=== PATIENT | male | born 1945 | race Hispanic/Latino ===

== ENCOUNTER 2017-06-04 17:34 | Inpatient (IN) | payer MEDICARE, BC ==
[2017-06-04 17:44] VITALS: BMI 37.3
[2017-06-04] MEDS ORDERED: Sodium Chloride 0.9% 500 ML IV STA (18:46)
[2017-06-04 19:21] LABS: EOS # 0.1 (0.0-0.7); EOS % 0.7 % (1.5-5.0); GRAN # 7.3 (1.4-6.5); GRAN % 72.2 % (50.0-68.0); HEMATOCRIT 41.7 % (42.0-52.0); LYMPH # 1.7 (1.2-3.4); LYMPH % 16.9 % (22.0-35.0); MEAN CELL VOLUME 88.9 fl (80.0-105.0); MEAN CORPUSCULAR HEMOGLOBIN 30.5 pg (25.0-35.0); MEAN CORPUSCULAR HGB CONC 34.3 g/dl (31.0-37.0); MEAN PLATELET VOLUME 10.9 fl (7.0-11.0); MONO % 10.2 % (1.0-6.0); RED CELL DISTRIBUTION WIDTH 13.6 % (11.5-14.5); WHITE BLOOD COUNT 10.1 10^3/ul (4.5-11.0)
[2017-06-04 19:29] LABS: ALB/GLOB RATIO 1.3 (1.1-1.8); ALKALINE PHOSPHATASE 89 U/L (38-126); ALT/SGPT 31 U/L (7-56); AST/SGOT 25 U/L (17-59); BILIRUBIN,TOTAL 1.2 mg/dL (0.2-1.3); BLOOD UREA NITROGEN 12 mg/dL (7-21); CALCIUM 8.9 mg/dL (8.4-10.5); CARBON DIOXIDE 33 mmol/L (21-33); CHLORIDE 94 mmol/L (98-107); GFR AFRICAN-AMERICAN > 60; GLUCOSE,RANDOM 114 mg/dL (70-110); LIPASE 42 U/L (23-300); POTASSIUM 4.2 mmol/L (3.6-5.0); SODIUM 136 mmol/L (132-148); TOTAL PROTEIN 7.2 g/dL (5.8-8.3)
[2017-06-04 19:36] LABS: INR 1.03 (0.93-1.08); PARTIAL THROMBOPLASTIN TIME 28.3 Seconds (23.7-30.8)
--- NOTE | 2017-06-04 19:39 | ED PDOC ---
Arrival/HPI - General Historian: Patient - History of Present Illness Time/Duration: Other (today) Symptom Course: Unchanged Quality: Other Context: Home - General Chief Complaint: GI Problem Time Seen by Provider: 06/04/17 18:16 - History of Present Illness Narrative History of Present Illness (Text): 06/04/17 19:39 A 72 year old male, whose past surgical history includes 2 bilateral inguinal hernia repair, was sent into the emergency department by PMD for hernia in right groin. Patient reports he has had a bulge present for the past few months but no pain until recently. Patient also reports constipation for the past 5 days but states he is able to pass gas. Patient notes lower abdominal pain, nausea, non-bilious non-bloody vomiting, difficulty tolerating PO and a loss of appetite. Patient was seen by PMD today and had an outpatient CT done which showed a hernia in right groin. Patient denies any fever, chills, urinary symptoms, chest pain, shortness of breath or any other complaints. PMD Oneyda Honeycutt (Rosanna Bentley PA-C) Past Medical History - Provider Review Nursing Documentation Reviewed: Yes - Infectious Disease Hx of Infectious Diseases: None - Reproductive Currently : No - Gastrointestinal Other/Comment: hernia - Psychiatric Hx Substance Use: No - Anesthesia Hx Anesthesia: Yes Hx Anesthesia Reactions: No Hx Malignant Hyperthermia: No Family/Social History - Physician Review Nursing Documentation Reviewed: Yes Family/Social History: No Known Family HX Smoking Status: Never Smoked Hx Alcohol Use: No Hx Substance Use: No Allergies/Home Meds Allergies/Adverse Reactions: Allergies No Known Allergies Allergy (Verified 06/04/17 17:44) Home Medications: Home Meds Medication Instructions Recorded Confirmed Ciprofloxacin [Cipro] 1 tab PO BID 06/04/17 06/04/17 Metronidazole [Flagyl] 1 tab PO TID 06/04/17 06/04/17 Review of Systems - Physician Review All systems were reviewed & negative as marked: Yes - Review of Systems Constitutional: absent: Fevers, Night Sweats Respiratory: absent: SOB Cardiovascular: absent: Chest Pain Gastrointestinal: Abdominal Pain, Constipation, Nausea, Vomiting, Appetite Changes Genitourinary Male: Other (hernia in right groin). absent: Dysuria, Frequency, Hematuria, Urinary Output Changes Physical Exam Vital Signs Reviewed: Yes Temperature: Afebrile Blood Pressure: Normal Pulse: Tachycardic Respiratory Rate: Normal Appearance: Positive for: Well-Appearing, Non-Toxic, Comfortable Pain Distress: None Mental Status: Positive for: Alert and Oriented X 3 - Systems Exam Head: Present: Atraumatic, Normocephalic Pupils: Present: PERRL Extroacular Muscles: Present: EOMI Conjunctiva: Present: Normal Mouth: Present: Moist Mucous Membranes Neck: Present: Normal Range of Motion Respiratory/Chest: Present: Clear to Auscultation, Good Air Exchange. No: Respiratory Distress, Accessory Muscle Use Cardiovascular: Present: Regular Rate and Rhythm, Normal S1, S2. No: Murmurs Abdomen: Present: Tenderness, Normal Bowel Sounds, Hernias (Palpable mass to inguinal area). No: Distention, Peritoneal Signs Rectal: Present: Normal Rectal Tone, Other (no impaction, male EMT was present during the entire exam). No: Occult Blood (guaiac negative), Rectal Tenderness , Gross Blood, Melena, Hemorrhoids, Fissures, Nodule/Mass/Lesions Back: Present: Normal Inspection Upper Extremity: Present: Normal Inspection. No: Cyanosis, Edema Lower Extremity: Present: Normal Inspection. No: Edema Neurological: Present: GCS=15, CN II-XII Intact, Speech Normal Skin: Present: Warm, Dry, Normal Color. No: Rashes Psychiatric: Present: Alert, Oriented x 3, Normal Insight, Normal Concentration Vital Signs Temp Pulse Resp BP Pulse Ox 06/04/17 22:16 91 H 18 118/74 98 06/04/17 20:30 84 16 121/74 96 06/04/17 17:45 98.8 F 91 H 18 145/86 95 Medical Decision Making - Lab Interpretations I have reviewed the lab results: Yes ED Course and Treatment: I was available for consultation during PA evaluation. The chart was reviewed by me, and I agree with disposition. The documented history was done by the physician director of quality control. The documented physical exam was done by the physician director of quality control. The documented procedures were done by the physician director of quality control. (Talib Pereira) 06/04/17 19:39 Impression: A 72 year old male with a hernia in right groin. Patient notes constipation, lower abdominal pain, nausea, vomiting, difficulty tolerating PO and loss of appetite. Plan: -- Labs -- Urinalysis -- Lactulose, Zofran and IV fluids -- Reassess and disposition Progress Notes: CT A/P results reviewed. Case d/w Dr. Kranthi Honeycutt, notified and agrees with plan for admission and to consult Dr. Benavdiez for surgery. Bridge orders placed. Patient notified of plan for admission and he agrees with plan. vice president quality made aware and case discussed. (Mc CARO,Rosanna Gomez) - Lab Interpretations Lab Results: 06/04/17 19:16 06/04/17 19:16 Lab Results 06/04/17 19:16: Blood Type A POSITIVE, Antibody Screen Negative, BBK History Checked No verified bt 06/04/17 19:16: Sodium 136, Potassium 4.2, Chloride 94 L, Carbon Dioxide 33, Anion Gap 13, BUN 12, Creatinine 1.0, Est GFR ( Amer) > 60, Est GFR (Non- Af Amer) > 60, Random Glucose 114 H, Calcium 8.9, Total Bilirubin 1.2, AST 25, ALT 31, Alkaline Phosphatase 89, Total Protein 7.2, Albumin 4.0, Globulin 3.2, Albumin/Globulin Ratio 1.3, Lipase 42 06/04/17 19:16: PT 11.1, INR 1.03, APTT 28.3 06/04/17 19:16: WBC 10.1, RBC 4.69, Hgb 14.3, Hct 41.7 L, MCV 88.9, MCH 30.5, MCHC 34.3, RDW 13.6, Plt Count 203, MPV 10.9, Gran % 72.2 H, Lymph % (Auto) 16.9 L, [place] % (Auto) 10.2 H, Eos % (Auto) 0.7 L, Baso % (Auto) 0.0, Gran # 7.30 H, Lymph # 1.7, [place] # 1.0 H, Eos # 0.1, Baso # 0.00 - RAD Interpretation Narrative RAD Interpretations (Text): 06/04/17 19:45 CT A/P : FINDINGS: LOWER THORAX: Unremarkable. LIVER: Unremarkable. No gross lesion or ductal dilatation. GALLBLADDER AND BILE DUCTS: Unremarkable. PANCREAS: Unremarkable. No gross lesion or ductal dilatation. SPLEEN: Unremarkable. ADRENALS: Unremarkable. No mass. KIDNEYS AND URETERS: Unremarkable. No hydronephrosis. No solid mass. VASCULATURE: Unremarkable. No aortic aneurysm. BOWEL: There is a right inguinal hernia which contains a loop of small bowel. The hernia sac measures 6 cm in diameter. The hernia defect measures 4.5 cm as seen on coronal image 45. This appears to produce partial obstruction with dilatation of the proximal small bowel up to a diameter of 4 cm. APPENDIX: Unremarkable. Normal appendix. PERITONEUM: Unremarkable. No free fluid. No free air. LYMPH NODES: Unremarkable. No enlarged lymph nodes. BLADDER: Unremarkable. REPRODUCTIVE: Unremarkable. BONES: No acute fracture. OTHER FINDINGS: I spoke to Dr. Adonis Honeycutt regarding these findings at 2:30 p.m. IMPRESSION: Right inguinal hernia containing a loop of small bowel with partial small bowel obstruction. (Mc CARO,Rosanna Gomez) - Medication Orders Current Medication Orders: Sodium Chloride (Sodium Chloride 0.9%) 1,000 mls @ 100 mls/hr IV .Q10H STA Stop: 06/05/17 05:45 Last Admin: 06/04/17 20:15 Dose: 100 mls/hr Discontinued Medications Sodium Chloride (Sodium Chloride 0.9%) 500 mls @ 1,000 mls/hr IV .Q30M STA Stop: 06/04/17 19:15 Last Admin: 06/04/17 19:29 Dose: 1,000 mls/hr Lactulose (Enulose) 20 gm PO ONCE STA Stop: 06/04/17 18:49 Last Admin: 06/04/17 19:29 Dose: 20 gm Ondansetron HCl (Zofran Inj) 4 mg IVP STAT STA Stop: 06/04/17 18:47 Last Admin: 06/04/17 19:29 Dose: 4 mg - PA / HOT TAR ROOFER / Resident Statement MD/DO has reviewed & agrees with the documentation as recorded. - Scribe Statement The provider has reviewed the documentation as recorded by the Scribe - Scribe Statement Margy Corea Provider Scribe Attestation: All medical record entries made by the Scribe were at my direction and personally dictated by me. I have reviewed the chart and agree that the record accurately reflects my personal performance of the history, physical exam, medical decision making, and the department course for this patient. I have also personally directed, reviewed, and agree with the discharge instructions and disposition. (Mc CARO,Rosanna Gomez) Disposition/Present on Arrival - Present on Arrival Any Indicators Present on Arrival: No History of DVT/PE: No History of Uncontrolled Diabetes: No Urinary Catheter: No History of Decub. Ulcer: No History Surgical Site Infection Following: None - Disposition Have Diagnosis and Disposition been Completed?: Yes Disposition Time: 07:30 Patient Plan: Admission - Disposition Diagnosis: Abdominal pain, Partial small bowel obstruction, Right inguinal hernia Disposition: HOSPITALIZED Patient Problems: Current Active Problems Problem Status Onset Abdominal pain Acute Partial small bowel obstruction Acute Right inguinal hernia Acute Condition: STABLE
[2017-06-04] MEDS ORDERED: Sodium Chloride 0.9% 1,000 ML IV STA (19:46)
[2017-06-04 19:47] LABS: URINE APPEARANCE CLEAR (CLEAR); URINE BILIRUBIN NEGATIVE (NEGATIVE); URINE BLOOD NEGATIVE (NEGATIVE); URINE COLOR LIGHT YELLOW (YELLOW); URINE GLUCOSE (UA) NEGATIVE (NEGATIVE); URINE KETONE TRACE mg/dL (NEGATIVE); URINE LEUKOCYTE ESTERASE NEGATIVE Leu/uL (NEGATIVE); URINE PROTEIN NEGATIVE mg/dL (<30 mg/dL); URINE UROBILINOGEN 0.2 E.U./dL (<1 E.U./dL)
--- NOTE | 2017-06-04 23:01 | CP.PCM.CON ---
History of Present Illness - History of Present Illness History of Present Illness: General Surgery Consult Re: R inguinal hernia, partial SBO HPI: 72M sent to ED by PMD for R inguinal hernia found on outpatient CT. Pt reports hernia has been present for almost a year but had no pain until recently. Hernia is easily reducible. Pain is mostly at hernia site on R when it has popped out but has mild LLQ pain as well. Also reports constipation x 5 days with some occasional flatus. + nausea, NBNB emesis, difficulty tolerating PO and decreased appetite. Denies any fever, chills, urinary symptoms, chest pain, shortness of breath or any other complaints. Pt was afraid his hernia could "burst." PMH: Denies PSH: R and L inguinal hernia repairs SH: [place]. No tobacco, EtOH, or Drug use All: NKDA Meds: Denies Review of Systems - Review of Systems All systems: reviewed and no additional remarkable complaints except (as per HPI ) Past Patient History - Infectious Disease Hx of Infectious Diseases: None - Past Social History Smoking Status: Never Smoked - GASTROINTESTINAL Other/Comment: hernia - PSYCHIATRIC Hx Substance Use: No - SURGICAL HISTORY Hx Herniorrhaphy: Yes - ANESTHESIA Hx Anesthesia: Yes Hx Anesthesia Reactions: No Hx Malignant Hyperthermia: No Meds Allergies/Adverse Reactions: Allergies Allergy/AdvReac Type Severity Reaction Status Date / Time No Known Allergies Allergy Verified 06/04/17 17:44 - Medications Medications: Current Medications Sodium Chloride (Sodium Chloride 0.9%) 1,000 mls @ 100 mls/hr IV .Q10H STA Stop: 06/05/17 05:45 Last Admin: 06/04/17 20:15 Dose: 100 mls/hr Physical Exam - Constitutional Appears: Non-toxic, No Acute Distress - Head Exam Head Exam: ATRAUMATIC, NORMOCEPHALIC - Eye Exam Eye Exam: EOMI. absent: Scleral icterus - ENT Exam ENT Exam: Mucous Membranes Dry Additional comments: trachea midline - Respiratory Exam Respiratory Exam: NORMAL BREATHING PATTERN. absent: Respiratory Distress - Cardiovascular Exam Cardiovascular Exam: RRR. absent: JVD - GI/Abdominal Exam GI & Abdominal Exam: Hernia (R), Soft, Tenderness (mild over R inguinal hernia) . absent: Distended, Firm, Guarding, Rigid Additional comments: Old open hernia repair scars B/L - Rectal Exam Rectal Exam: Deferred - Extremities Exam Extremities exam: Positive for: pedal edema (trace). Negative for: calf tenderness - Back Exam Back exam: absent: CVA tenderness (L), CVA tenderness (R) - Neurological Exam Neurological exam: Alert, Oriented x3 - Psychiatric Exam Psychiatric exam: Normal Affect, Normal Mood - Skin Skin Exam: Dry, Warm Results - Vital Signs Recent Vital Signs: Last Vital Signs Temp 98.8 F 06/04/17 17:45 Pulse 91 H 06/04/17 22:16 Resp 18 06/04/17 22:16 BP 118/74 06/04/17 22:16 Pulse Ox 98 06/04/17 22:16 - Labs Result Diagrams: 06/04/17 19:16 06/04/17 19:16 Labs: Laboratory Results - last 24 hr 06/04/17 06/04/17 19:35 19:50 Urine Color Light yellow Urine Appearance Clear Urine pH 7.0 Ur Specific [place] <= 1.005 Urine Protein Negative Urine Glucose (UA) Negative Urine Ketones Trace H Urine Blood Negative Urine Nitrate Negative Urine Bilirubin Negative Urine Urobilinogen 0.2 Ur Leukocyte Esterase Negative Blood Type Confirm A POSITIVE Assessment & Plan - Assessment and Plan (Free Text) Assessment: 72M with recurrent R inguinal hernia. Plan: Possible OR Sunday NPO p MN IVF Analgesia PRN Monitor for bowel movements D/W Dr. Pramod Lee PGY4
--- NOTE | 2017-06-05 09:43 | CP.PCM.PN ---
Subjective - Date & Time of Evaluation Date of Evaluation: 06/05/17 Time of Evaluation: 09:40 - Subjective Subjective: General Surgery Progress note for Dr. Benavidez PT S&E at bedside. PURA. Patient was informed that it would be better to schedule the hernia electively. Patient denies F/C, constipation, abdominal pain , N/V Objective - Vital Signs/Intake and Output Vital Signs (last 24 hours): Temp Pulse Resp BP Pulse Ox 99.3 F 88 20 122/63 100 06/05/17 08:17 06/05/17 08:17 06/05/17 08:17 06/05/17 08:17 06/05/17 08:17 Intake and Output: 06/05/17 06/05/17 06:59 18:59 Intake Total 800 Balance 800 - Medications Medications: Current Medications Sodium Chloride (Sodium Chloride 0.9%) 1,000 mls @ 100 mls/hr IV .Q10H PERI Pantoprazole Sodium (Protonix Inj) 40 mg IVP DAILY PERI - Labs Labs: PT 11.1 Seconds (9.9-11.8) 06/04/17 19:16 INR 1.03 (0.93-1.08) 06/04/17 19:16 APTT 28.3 Seconds (23.7-30.8) 06/04/17 19:16 - Constitutional Appears: Non-toxic, No Acute Distress - Head Exam Head Exam: NORMAL INSPECTION - Eye Exam Eye Exam: EOMI, Normal appearance - ENT Exam ENT Exam: Mucous Membranes Moist - Neck Exam Neck Exam: Full ROM - Respiratory Exam Respiratory Exam: NORMAL BREATHING PATTERN. absent: Accessory Muscle Use, Respiratory Distress - Cardiovascular Exam Cardiovascular Exam: REGULAR RHYTHM. absent: Bradycardia, Tachycardia - GI/Abdominal Exam GI & Abdominal Exam: Soft, Normal Bowel Sounds. absent: Tenderness Additional comments: scars from previous hernia repairs (at age 19 and one in his 30s) current hernia is reducible - Extremities Exam Extremities Exam: Full ROM, Normal Inspection. absent: Pedal Edema - Neurological Exam Neurological Exam: Alert, Awake, Oriented x3 - Psychiatric Exam Psychiatric exam: Normal Affect, Normal Mood - Skin Skin Exam: Dry, Intact, Normal Color, Warm Assessment and Plan - Assessment and Plan (Free Text) Assessment: 72M with recurrent R inguinal hernia. Plan: recommend scheduling the hernia repair as outpatient c/w current medical management c/w current pain control monitor for BM IVF d/w Dr. Pramod Bower, DO PGY1
[2017-06-05] MEDS: Sodium Chloride 0.9% 1,000 ML IV SCH ×2 (09:53→20:53)
--- NOTE | 2017-06-05 20:05 | HP ---
HISTORY OF PRESENT ILLNESS: The patient is a 72-year-old man with a past medical history of bilateral inguinal hernias s/p surgical repair who presented to [facility] ED for evaluation of a several day history of lower abdominal pain, worse in the RLQ and associated with nausea and constipation. He was evaluated in his PMD's office for the aforementioned symptoms and physical examination disclosed a mildly distended abdomen with rather significant RLQ tenderness with guarding as well as a small reducible inguinal hernia. The patient was provided with a prescription for a CT of the abdomen and pelvis which was obtained at [facility]. The imaging studies demonstrated a right inguinal hernia containing a loop of small bowel with partial small bowel obstruction. Given his significant pain and findings on the CAT scan, the patient was advised to present to the emergency department for further evaluation. Initially, the patient had refused but over the next few hours his pain had increased in intensity and as such he returned to the ED for further management. He was subsequently admitted to the [facility] for surgical evaluation. PAST MEDICAL HISTORY: As per HPI. PAST SURGICAL HISTORY: As per HPI. ALLERGIES: NKDA. MEDICATIONS: None. FAMILY HISTORY: Noncontributory. SOCIAL HISTORY: The patient denies any history of smoking, alcohol use or illicit drug abuse. REVIEW OF SYSTEMS: A 14-point review of systems is negative except as per HPI. PHYSICAL EXAMINATION: VITAL SIGNS: Temperature 99.3, pulse 88, blood pressure 122/63, respiratory rate 20, oxygen saturation 100% on room air. GENERAL: No apparent distress. HEENT: PERRL. EOMI. No scleral icterus. No conjunctival pallor. NECK: No JVD. No bruits. LUNGS: Clear to auscultation. CARDIOVASCULAR: Regular rate and rhythm. Normal S1 and S2. ABDOMEN: Normal active bowel sounds. Soft, tender to palpation to the RLQ with voluntary guarding with reducible right inguinal hernia. EXTREMITIES: No edema. NEUROLOGIC: Awake, alert and oriented x3. No focal motor deficits. LABORATORY DATA: CBC reviewed and unremarkable. CMP reviewed and unremarkable. IMAGING STUDIES: CT of the abdomen and pelvis without contrast demonstrates a right inguinal hernia containing loop of small bowel with partial small bowel obstruction. ASSESSMENT: The patient is a 72-year-old man with past medical history of bilateral inguinal hernias s/p surgical repair who presented to [facility] for continued management of a one-week history of lower abdominal pain with outpatient CT of the abdomen and pelvis demonstrating a right-sided inguinal hernia with small bowel obstruction. PLAN: 1. Right-sided inguinal hernia. Dr. Benavidez of general surgery has been consulted for evaluation for possible surgical repair. The patient remains n.p.o. and at present his pain is controlled with no analgesics. We will continue to monitor for fever and leukocytosis. Continue with serial abdominal exams. 2. Prophylaxis. We will start Protonix 40 mg IV daily for GI prophylaxis. We will hold the DVT prophylaxis as the patient may require surgical repair. CODE STATUS: FULL CODE. Adonis Honeycutt MD MTDD
[2017-06-06] MEDS: Sodium Chloride 0.9% 1,000 ML IV SCH ×2 (05:51→21:27)
[2017-06-06 06:17] LABS: BASO # 0.01 K/mm3 (0.0-2.0); BASO % 0.2 % (0.0-3.0); EOS # 0.3 (0.0-0.7); EOS % 5.7 % (1.5-5.0); GRAN # 3.18 (1.4-6.5); GRAN % 56.4 % (50.0-68.0); HEMATOCRIT 35.5 % (42.0-52.0); LYMPH # 1.6 (1.2-3.4); LYMPH % 28.8 % (22.0-35.0); MEAN CELL VOLUME 90.1 fl (80.0-105.0); MEAN CORPUSCULAR HEMOGLOBIN 30.5 pg (25.0-35.0); MEAN CORPUSCULAR HGB CONC 33.8 g/dl (31.0-37.0); MEAN PLATELET VOLUME 10.8 fl (7.0-11.0); MONO # 0.5 (0.1-0.6); MONO % 8.9 % (1.0-6.0); RED CELL DISTRIBUTION WIDTH 13.9 % (11.5-14.5); WHITE BLOOD COUNT 5.6 10^3/ul (4.5-11.0)
[2017-06-06 07:10] LABS: ALB/GLOB RATIO 1.1 (1.1-1.8); ALKALINE PHOSPHATASE 65 U/L (38-126); ALT/SGPT 30 U/L (7-56); AST/SGOT 23 U/L (17-59); BILIRUBIN,TOTAL 0.6 mg/dL (0.2-1.3); BLOOD UREA NITROGEN 6 mg/dL (7-21); CALCIUM 7.9 mg/dL (8.4-10.5); CARBON DIOXIDE 28 mmol/L (21-33); CHLORIDE 108 mmol/L (95-110); GFR AFRICAN-AMERICAN > 60; GLUCOSE,RANDOM 85 mg/dL (70-110); POTASSIUM 3.6 mmol/L (3.6-5.0); SODIUM 142 mmol/L (132-148); TOTAL PROTEIN 5.8 g/dL (5.8-8.3)
--- NOTE | 2017-06-06 09:04 | RAD ---
HISTORY: preop COMPARISON: No prior. FINDINGS: LUNGS: No active pulmonary disease. PLEURA: No significant pleural effusion identified, no pneumothorax apparent. CARDIOVASCULAR: Normal. OSSEOUS STRUCTURES: No significant abnormalities. VISUALIZED UPPER ABDOMEN: Normal. OTHER FINDINGS: None. IMPRESSION: No active disease.
--- NOTE | 2017-06-06 10:16 | PN ---
DATE: SUBJECTIVE: The patient is seen and examined at bedside on the general medical [facility]. No acute events overnight. He remains afebrile and hemodynamically stable. He continues to endorse lower abdominal pain worse in the right lower quadrant, but states that it is bearable. He is pending surgical repair of his right inguinal hernia with small bowel obstruction. OBJECTIVE: VITAL SIGNS: Temperature of 98, pulse of 80, blood pressure of 128/76, respiratory rate of 18, and oxygen saturation of 95% on room air. GENERAL: No apparent distress. HEENT: PERRL. EOMI. No scleral icterus. No conjunctival pallor. NECK: No JVD. No bruits. LUNGS: Clear to auscultation. CARDIOVASCULAR: Regular rate and rhythm. Normal S1 and S2. ABDOMEN: Normoactive bowel sounds. Soft, tender to palpation to right upper quadrant with voluntary guarding with reducible right inguinal hernia. EXTREMITIES: No edema. NEUROLOGIC: Awake, alert, and oriented x3. No focal motor deficits. LABORATORY DATA: CBC reviewed and largely unremarkable. CMP reviewed and unremarkable. ASSESSMENT: The patient is a 72-year-old man with past medical history of bilateral inguinal hernias, status post surgical repair, who presented to [facility] for continued management of one week history of lower abdominal pain and who is subsequently admitted after an outpatient CT demonstrated right-sided inguinal hernia with small bowel obstruction. PLAN: 1. Right sided inguinal hernia with small bowel obstruction. Input from Dr. Benavidez and surgical team noted and appreciated and the patient is scheduled for operative repair later today. The patient has no underlying medical issues and no active cardiac issues and as such barring any abnormalities on his EKG. He may proceed to the OR without any further cardiac workup and is deemed a low risk candidate for intermediate risk procedure. 2. Prophylaxis: Continue Protonix 40 mg IV daily for GI prophylaxis. DVT prophylaxis on hold as the patient is pending, operative repair of his inguinal hernia. CODE STATUS: Full code. Adonis Honeycutt MD
[2017-06-06] MEDS ORDERED: Propofol 10 mg/ml Inj (20 ML) ONE (13:35)
[2017-06-06] MEDS ORDERED: Etomidate 20 mg/10ml Inj IV ONE (13:35)
[2017-06-06] MEDS ORDERED: Bupivacaine 0.5% Inj(30mL) ONE (13:42)
[2017-06-06] MEDS ORDERED: Lidocaine 2% Jelly (Uro-Jet) ONE (13:43)
[2017-06-06] MEDS ORDERED: Succinylcholine 200 mg/10 ml Inj IV ONE (14:43)
[2017-06-06] MEDS ORDERED: Glycopyrrolate 0.2 mg/ml (2ml vial) ONE (15:50)
[2017-06-06] MEDS ORDERED: Neostigmine Methylsulfate 3mg/3ml Syringe IV ONE ×2 (15:51→15:55)
[2017-06-06] MEDS ORDERED: Desflurane Inhalation Anesthetic Liq (240 ml) ONE (16:30)
[2017-06-06] MEDS ORDERED: HYDROmorphone 0.5 mg/0.5 ml ISec ONE (17:00)
--- NOTE | 2017-06-06 17:03 | CARD ---
APPROVED REPORT EKG Measurement Heart [id number] <Conclusion> Sinus rhythm with premature atrial complexes Otherwise normal ECG
[2017-06-06] MEDS ORDERED: HYDROmorphone 0.5 mg/0.5 ml ISec IVP PRN ×2 (17:33→17:37)
--- NOTE | 2017-06-06 17:33 | PCM.SURG1 ---
Surgeon's Initial Post Op Note - Surgeon's Notes Surgeon: Dr. Benavidez Operations Support Coordinator: Dr. Lee PGY-4, Dr. Wright PGY-2 Type of Anesthesia: General Endo Pre-Operative Diagnosis: right inguinal hernia Operative Findings: see operative report Post-Operative Diagnosis: see operative report Operation Performed: right inguinal hernia repair w/ mesh Specimen/Specimens Removed: cord lipoma Estimated Blood Loss: EBL {In ML}: 50 Blood Products Given: N/A Drains Used: No Drains Post-Op Condition: Good Date of Surgery/Procedure: 06/06/17 Time of Surgery/Procedure: 17:33
[2017-06-06] MEDS ORDERED: Lactated Ringer's 1,000 ML IV SCH (17:37)
[2017-06-07 06:25] LABS: GRAN # 9.84 (1.4-6.5); GRAN % 88.9 % (50.0-68.0); HEMATOCRIT 36.9 % (42.0-52.0); LYMPH # 0.7 (1.2-3.4); LYMPH % 6.3 % (22.0-35.0); MEAN CELL VOLUME 89.1 fl (80.0-105.0); MEAN CORPUSCULAR HEMOGLOBIN 29.7 pg (25.0-35.0); MEAN CORPUSCULAR HGB CONC 33.3 g/dl (31.0-37.0); MEAN PLATELET VOLUME 11.2 fl (7.0-11.0); MONO # 0.5 (0.1-0.6); MONO % 4.8 % (1.0-6.0); RED CELL DISTRIBUTION WIDTH 13.7 % (11.5-14.5); WHITE BLOOD COUNT 11.1 10^3/ul (4.5-11.0)
[2017-06-07 06:54] LABS: ALB/GLOB RATIO 1.1 (1.1-1.8); ALKALINE PHOSPHATASE 72 U/L (38-126); ALT/SGPT 29 U/L (7-56); AST/SGOT 24 U/L (17-59); BILIRUBIN,TOTAL 0.7 mg/dL (0.2-1.3); BLOOD UREA NITROGEN 8 mg/dL (7-21); CALCIUM 8.5 mg/dL (8.4-10.5); CARBON DIOXIDE 27 mmol/L (21-33); CHLORIDE 105 mmol/L (95-110); GFR AFRICAN-AMERICAN > 60; GLUCOSE,RANDOM 113 mg/dL (70-110); POTASSIUM 3.8 mmol/L (3.6-5.0); SODIUM 137 mmol/L (132-148); TOTAL PROTEIN 6.2 g/dL (5.8-8.3)
[2017-06-07 08:41] VITALS: BP 127/64; PULSE 79; RESP 20; TEMP 98.7; O2SAT 95
[2017-06-07] MEDS ORDERED: Enoxaparin 40 mg Syringe SC SCH (10:00)
--- NOTE | 2017-06-07 10:48 | PN ---
SUBJECTIVE: The patient was seen and examined at bedside on the general medical [facility]. No acute events overnight. He remains afebrile and hemodynamically stable. The patient is s/p operative repair of right inguinal hernia with placement of mesh. He tolerated the procedure well and his postoperative course thus far has been uncomplicated. This morning he feels significantly improved since admission, but does endorse mild pain at the surgical site. Otherwise, he offers no complaints. He has not yet had a bowel movement or passed flatus. OBJECTIVE: VITAL SIGNS: Temperature 98, pulse 143/76, respiratory rate 16, oxygen saturation 94% on room air. GENERAL: No apparent distress. HEENT: PERRL. EOMI. No scleral icterus. No conjunctival pallor. NECK: No JVD. No bruits. LUNGS: Clear to auscultation. CARDIOVASCULAR: Regular rate and rhythm. Normal S1 and S2. ABDOMEN: Normoactive bowel sounds, soft. Mild tenderness to palpation at the surgical site was voluntary guarding. Surgical site appears clean, dry and intact. EXTREMITIES: No edema. NEUROLOGIC: Awake, alert, and oriented x3. No focal motor deficits. LABORATORY DATA: WBC 11 with 89% neutrophils, hemoglobin 12, hematocrit 37, platelets 173. Chemistry revealed unremarkable. ASSESSMENT: The patient is a 72-year-old man with a past medical history of bilateral inguinal hernia s/p surgical repair who presents to [facility] for continued management of one week history of lower abdominal pain with an outpatient CT demonstrating a right sided inguinal hernia with small bowel obstruction who is now s/p operative repair of his right inguinal hernia POD #1. PLAN: 1. Right-sided inguinal hernia with small bowel obstruction, status post operative repair, postop day #1. Input from Dr. Benavidez and surgical team noted and appreciated and the patient is doing well postoperatively. We will defer advancing diet to the surgical team. 2. Leukocytosis. Etiology is likely secondary to stress response. The patient remains afebrile and otherwise hemodynamically stable. We will continue to monitor for fever and trend leukocytosis. 3. Prophylaxis. Continue Protonix 40 mg IV daily for GI prophylaxis and Lovenox 40 mg subcutaneous daily for DVT prophylaxis. CODE STATUS: FULL CODE. Adonis Honeycutt MD LUZ ELENA
[2017-06-07] MEDS ORDERED: Magnesium Hydroxide Susp 30 ml UD PO ONE (11:49)
--- NOTE | 2017-06-07 11:56 | CP.PCM.PN ---
Subjective - Date & Time of Evaluation Date of Evaluation: 06/07/17 Time of Evaluation: 11:56 - Subjective Subjective: General Surgery for Dr. Benavidez, PT S&E at bedside. PURA. Patient did not ask for pain medication. tolerating pain well. Vitals stable overnight. Patient was seen walking around the floors after visit at bedside. Regular diet was ordered. Patient tolerated diet. Objective - Vital Signs/Intake and Output Vital Signs (last 24 hours): Temp Pulse Resp BP Pulse Ox 98.7 F 79 20 127/64 95 06/07/17 08:40 06/07/17 08:40 06/07/17 08:40 06/07/17 08:40 06/07/17 08:40 Intake and Output: 06/07/17 06/07/17 06:59 18:59 Intake Total 1140 720 Output Total 400 Balance 1140 320 - Medications Medications: Current Medications Acetaminophen (Tylenol 325mg Tab) 650 mg PO Q6H PRN PRN Reason: Pain, Mild (1-3) Last Admin: 06/05/17 16:56 Dose: 650 mg Enoxaparin Sodium (Lovenox) 40 mg SC DAILY [facility] PRN Reason: Protocol Last Admin: 06/07/17 10:57 Dose: 40 mg Hydromorphone HCl (Dilaudid) 0.5 mg IVP Q4H PRN PRN Reason: Pain, moderate (4-7) Last Admin: 06/06/17 17:35 Dose: 0.5 mg Sodium Chloride (Sodium Chloride 0.9%) 1,000 mls @ 100 mls/hr IV .Q10H [facility] Last Admin: 06/06/17 21:27 Dose: 100 mls/hr Ondansetron HCl (Zofran Inj) 4 mg IVP Q6H PRN PRN Reason: Nausea/Vomiting Last Admin: 06/05/17 16:55 Dose: 4 mg Pantoprazole Sodium (Protonix Inj) 40 mg IVP DAILY [facility] Last Admin: 06/07/17 10:57 Dose: 40 mg - Labs Labs: 06/07/17 06:00 06/07/17 06:00 PT 11.1 Seconds (9.9-11.8) 06/04/17 19:16 INR 1.03 (0.93-1.08) 06/04/17 19:16 APTT 28.3 Seconds (23.7-30.8) 06/04/17 19:16 - Constitutional Appears: Non-toxic, No Acute Distress - Head Exam Head Exam: NORMAL INSPECTION - Eye Exam Eye Exam: EOMI, Normal appearance - ENT Exam ENT Exam: Mucous Membranes Moist - Neck Exam Neck Exam: Full ROM, Normal Inspection - Respiratory Exam Respiratory Exam: NORMAL BREATHING PATTERN. absent: Accessory Muscle Use, Respiratory Distress - Cardiovascular Exam Cardiovascular Exam: REGULAR RHYTHM. absent: Bradycardia, Tachycardia - GI/Abdominal Exam GI & Abdominal Exam: Soft, Normal Bowel Sounds. absent: Tenderness Additional comments: right lower quadrant stapled. dressing c/d/i - Extremities Exam Extremities Exam: Full ROM, Normal Capillary Refill, Normal Inspection - Back Exam Back Exam: Full ROM, NORMAL INSPECTION - Neurological Exam Neurological Exam: Alert, Awake, Oriented x3 - Psychiatric Exam Psychiatric exam: Flat Affect, Normal Affect, Normal Mood - Skin Skin Exam: Dry, Intact, Normal Color, Warm Assessment and Plan - Assessment and Plan (Free Text) Assessment: 72M s/p inguinal hernia repair POD#1 Plan: patient is clear for d/c per primary patient tolerated regular diet d/c home with 4x4. patient can shower, do not submerge dressing in water (no baths) no heavy lifting f/u with Dr. Benavidez in 1 week for staple removal and post operative follow up Alena Bower DO PGY1
--- NOTE | 2017-06-07 19:55 | OP ---
PROCEDURE DATE: 06/06/2017 PREOPERATIVE DIAGNOSIS: Right inguinal hernia, recurrent. POSTOPERATIVE DIAGNOSIS: Right inguinal hernia, recurrent. OPERATION PERFORMED: Right inguinal herniorrhaphy with plug and a patch. SURGEON: Ranjit Benavidez MD REGIONAL ECONOMIST: Dr. Lee. PROCEDURE: In the operating room, the patient was identified by name, name of procedure, and laterality. We discussed the CAT scan prior which showed a very large hernia in the direct position probably, not in the scrotum but in the tissue down low by the femoral area, it is reducible. There is a large bladder that is pushing on the hernia but non-involving the hernia. Therefore, the patient was given 2 g of Ancef and a [place] was placed prior to the operation. The abdomen was prepped and draped widely. After the successful timeout, the patient was identified by name, name of procedure, laterality and my giovanni, the patient's name, number and wrist band, the operation proceeded. The medial portion of the prior incision was opened and dissection was taken down to considerable amount of scar to eventually identify the external oblique. This was cleaned going north and towards the ring. Below the ring, a large hernia was identified. This was circumscribed by blunt dissection and circumscribed with a [place]. The vas was completely identified. It was then circumscribed with a [place] and from the sac. The sac was then widely dissected high. It was densely adherent anteriorly, but this was taken down and to get a good high dissection. This having been done, bleeding was controlled. The incision was then invaginated upon itself and a large plug was placed. This seemed to work very well. It was sutured in 5 corners with Prolene at the opening to give a good closure. The mesh was then reversed and sutured around the cord. It was then sutured in in multiple areas with Prolene. The previously dissected external oblique was then closed over the mesh in good stead. The scar was then closed with Vicryl. Hemostasis was excellent and achieved with cautery. The incision was closed with subcutaneous Vicryl and subcuticular PDS. The wound was invested with Dermabond and a light pressure dressing was applied. The patient was taken to recovery room in good condition after the testicle was pulled out and a the sponge and needle count was declared correct. Ranjit Benavidez MD
--- NOTE | 2017-06-08 11:38 | DS ---
ADMITTING DIAGNOSIS: Right inguinal hernia with small-bowel obstruction. DISCHARGE DIAGNOSES: Right inguinal hernia, status post operative repair with mesh placement; small-bowel obstruction (resolved). SECONDARY DIAGNOSES: None. CONSULTATIONS: Dr. Benavidez (general surgery). IMAGING STUDIES: 1. Chest x-ray which demonstrated no acute pathology. 2. CT of the abdomen and pelvis without contrast, which demonstrated right inguinal hernia containing a loop of small bowel with partial small-bowel obstruction. PROCEDURE: Operative repair of right inguinal hernia with placement of mesh. HISTORY OF PRESENT ILLNESS: The patient is a 72-year-old man with past medical history of bilateral inguinal hernias, status post surgical repair, who presented to [facility] Emergency Department for evaluation of a several-day history of lower abdominal pain, worse in the right lower quadrant and associated with nausea and constipation. He was evaluated in his PMD's office for the aforementioned symptoms and physical examination disclosed a mildly distended abdomen with rather significant right lower quadrant tenderness with guarding as well as a small, reducible inguinal hernia. He was provided a prescription for a CT of the abdomen and pelvis, which was performed at [facility]. The imaging studies demonstrated a right inguinal hernia containing a loop of small bowel with partial small-bowel obstruction and given the patient's symptoms, he was advised to present to the emergency department for further evaluation. Initially, the patient refused ED evaluation, but over the next several hours, his pain had increased in intensity and as such, he returned to the ED for further management. He was subsequently admitted to the [facility] for surgical evaluation. HOSPITAL COURSE: Upon admission to the [facility], the patient was evaluated by Dr. Benavidez and the surgical team. Arrangements were made for operative repair of his right inguinal hernia. The patient was maintained n.p.o. and on hospital day #2 was taken to the OR where he underwent successful repair of the right inguinal hernia with placement of mesh. The patient tolerated the procedure well and his postoperative course was unremarkable. The following day, he was restarted on a regular diet, which he was tolerating without issues. The patient was also noted to pass flatus and have a bowel movement at which point in time he was deemed stable for discharge to home. CONDITION: Good, improved. DISPOSITION: To home. DISCHARGE MEDICATION: Motrin 800 mg p.o. t.i.d. p.r.n. pain. DISCHARGE INSTRUCTIONS: The patient was advised to adhere to postsurgical instructions as per Dr. Benavidez and the surgical team. FOLLOWUP: The patient to follow up with his PMD within 1 week of discharge. The patient to follow up with Dr. Benavidez as scheduled. Adonis Honecyutt MD
== END 2017-06-07 13:23 | disposition home or self-care (01) | DRG 352 ==
LOC: ED 17:34 → ERH 19:30 → 3RSO 22:49
PROVIDERS: ADMIT Internal Medicine; ATTEND Internal Medicine
PROC: 0YU50JZ Supplement Right Inguinal Region with Synthetic Substitute, Open Approach (ICD-10-PCS; principal; 2017-06-06 16:00)
DX: K40.31 Unilateral inguinal hernia, with obstruction, without gangrene, recurrent (principal); D17.6 Benign lipomatous neoplasm of spermatic cord; D72.828 Other elevated white blood cell count